=== PATIENT | male | born 2000 | race Caucasian/White ===

== ENCOUNTER → 2023-06-01 | Outpatient (CLI) | payer OTHER ==
[~2023-06-01] VITALS: Ht 182.9 cm; Wt 82.4 kg
[2023-06-01 08:16] VITALS: BP 133/84; PULSE 60; TEMP 97.8
[2023-06-01 09:10] VITALS: BP 138/86; PULSE 71
== END ==
LOC: COL.RAD 07:54
DX: E04.1 Nontoxic single thyroid nodule (principal)

== ENCOUNTER → 2023-08-31 | Outpatient (CLI) | payer OTHER ==
[~2023-08-31] VITALS: Ht 180.3 cm; Wt 86.0 kg
[2023-08-31 13:31] VITALS: BP 133/86; PULSE 60; TEMP 98.1
[2023-08-31 14:20] VITALS: BP 132/88; PULSE 62
== END ==
LOC: COL.RAD 12:27
DX: E04.1 Nontoxic single thyroid nodule (principal)